=== PATIENT | male | born 1990 | race Asian ===

== ENCOUNTER 2017-05-20 10:13 | Outpatient (CLI) | payer BC ==
--- NOTE | 2017-05-20 13:07 | NUR ---
this is only a test with rosalio
== END 2017-05-20 23:59 | disposition home or self-care (01) ==
LOC: MRI 10:13
PROVIDERS: ATTEND Student in an Organized Health Care Education/Training Program
DX: S83.511A Sprain of anterior cruciate ligament of right knee, initial encounter (principal); S83.231A Complex tear of medial meniscus, current injury, right knee, initial encounter; S83.271A Complex tear of lateral meniscus, current injury, right knee, initial encounter; M25.461 Effusion, right knee; X58.XXXA Exposure to other specified factors, initial encounter; Y93.89 Activity, other specified; Y92.89 Other specified places as the place of occurrence of the external cause; Y99.8 Other external cause status
CPT/HCPCS: 73721-TC

== ENCOUNTER 2017-12-20 17:08 | Emergency (ER) | payer BC ==
[~2017-12-20] VITALS: Ht 167.6 cm; Wt 79.4 kg
[2017-12-20 17:10] VITALS: BP 135/81
[2017-12-20] MEDS ORDERED: IBUPROFEN 600 MG TABLET PO ONE ×2 (17:59→18:00)
== END 2017-12-20 20:37 | disposition home or self-care (01) ==
LOC: ER 17:09
DX: S16.1XXA Strain of muscle, fascia and tendon at neck level, initial encounter (principal); V43.62XA Car passenger injured in collision with other type car in traffic accident, initial encounter; Y93.89 Activity, other specified; Y92.413 State road as the place of occurrence of the external cause; Y99.8 Other external cause status
CPT/HCPCS: 99282; A4606; Z7610

== ENCOUNTER 2018-02-26 07:26 | Emergency (ER) | payer BC, OTHER ==
[~2018-02-26] VITALS: Ht 165.1 cm; Wt 77.1 kg
[2018-02-26 07:26] VITALS: BP 124/68
== END 2018-02-26 07:57 | disposition home or self-care (01) ==
LOC: ER 07:28
DX: S40.862A Insect bite (nonvenomous) of left upper arm, initial encounter (principal); W57.XXXA Bitten or stung by nonvenomous insect and other nonvenomous arthropods, initial encounter; Y93.89 Activity, other specified; Y92.89 Other specified places as the place of occurrence of the external cause; Y99.8 Other external cause status
CPT/HCPCS: A4606; Z7610